=== PATIENT | female | born 1955 | race American Indian/Alaskan Native ===

== ENCOUNTER 2016-03-09 08:12 | Day surgery (SDC) | payer MEDICARE ==
[~2016-03-09 08:12] MED LIST: DIPRIVAN 10 MG/ML IV ONE; XYLOCAINE 2% INFILTRATI ONE
--- NOTE | 2016-03-09 08:31 | Anesthesia Consultation ---
Anesthesia Consult and Med Hx Date of service: 03/09/16 - Airway Anesthetic Teeth Evaluation: Good ROM Head & Neck: Adequate Mental/Hyoid Distance: Adequate Mallampati Class: Class II Intubation Access Assessment: Probably Good - Pulmonary Exam CTA: Yes - Cardiac Exam Cardiac Exam: RRR - Pre-Operative Health Status ASA Pre-Surgery Classification: ASA2 Proposed Anesthetic Plan: MAC - Pulmonary Hx Smoking: Yes (>40 years) Hx Asthma: No - Cardiovascular System Hx Hypertension: Yes - Gastrointestinal Hx Gastroesophageal Reflux Disease: No (patient states never has had GERD, unknown why on med) - Endocrine Hx Renal Disease: No Hx Liver Disease: No Hx Non-Insulin Dependent Diabetes: No - Hematic Hx Anemia: Yes Hx Sickle Cell Disease: Yes (TRAIT) - Other Systems Hx Alcohol Use: No Hx Substance Use: No Hx Cancer: Yes Hx Obesity: No - Additional Comments Anesthesia Medical History Comments: h/o colon cancer
--- NOTE | 2016-03-09 10:42 | Anesthesia Day of Surgery ---
Anesthesia Day of Surgery - Day of Surgery Patient Examined: Yes Patient H&P Reviewed: Yes Patient is NPO: Yes
--- NOTE | 2016-03-09 10:52 | Short Stay Summary ---
Short Stay Documentation Date of service: 03/09/16 Narrative H&P: 60 year old presents for EGD. Indication: diarrhea. Incidental problems include elevated CEA and weight loss. - History H&P: obtained from office Past Medical History: cancer (colon), GERD, hyperthyroidism, other (colon polyps ) Past Surgical History: cholecystectomy, bowel surgery (resection cecal cancer 2008) Social history: smoking, no alcohol abuse - Allergies and Medications Current Medications: Allergies No Known Allergies Allergy (Verified 11/25/12 13:23) Home Medications Medication Instructions Recorded Confirmed Last Taken Type Citalopram 40 mg PO DAILY 01/20/16 03/09/16 01/19/16 History Gabapentin 300 mg PO BID 01/20/16 03/09/16 03/08/16 History Klor-Con 20 mg PO BID 01/20/16 03/09/16 03/08/16 History Lisinopril 20 mg PO DAILY 01/20/16 03/09/16 01/19/16 History Omeprazole 40 mg PO HS 01/20/16 03/09/16 01/19/16 History Triamter/Hctz 75-50 mg 1 tab PO DAILY 01/20/16 03/09/16 01/19/16 History Vitamin D3 2,000 mg PO BID 01/20/16 03/09/16 03/08/16 History Vitamin E 200 mg PO DAILY 01/20/16 03/09/16 03/08/16 History Celecoxib 200 mg PO PRN PRN 03/09/16 03/09/16 03/08/16 History QUEtiapine Fumarate 100 mg PO HS 03/09/16 03/09/16 03/08/16 History Valsartan [Diovan] 160 mg PO DAILY 03/09/16 03/09/16 03/08/16 History Active Medications Sodium Chloride (Nacl 0.9% 1000 Ml) 1,000 mls @ 50 mls/hr IV DIRECT KALI Last Admin: 03/09/16 10:50 Dose: 50 mls/hr - Physical exam General appearance: no acute distress, well-nourished HEENT: PERRLA, EOMI Heart: Regular rate, Normal S1, Normal S2 Gastrointestinal: normal, obese - Hospital course Hospital course: Uneventful EGD. - Disposition Condition at discharge: Good Disposition: DISCHARGED TO HOME OR SELFCARE - Discharge Diagnoses (1) Diarrhea Status: Acute Comment: suspect post-surgical "choleraic" diarrhea (2) Gastritis Status: Acute (3) Elevated CEA Status: Acute (4) Weight loss Status: Acute (5) Tobacco use Status: Acute Short Stay Discharge Plan Activity: other (no driving today) Diet: other (may resume usual diet) Additional Instructions: Patient to call for biopsy results.
[2016-03-09] MEDS ORDERED: NACL 0.9% 1000 ML 1,000 ML IV SCH (11:00)
--- NOTE | 2016-03-09 11:51 | Operative Report ---
Operative Report Operative Report: Date of procedure: 03/09/2016 Preprocedure diagnosis: Diarrhea, elevated CEA, weight loss Post procedure diagnosis: Gastritis Procedure name(s): Esophagogastroduodenoscopy with biopsy Surgeon: Fracisco Lebron MD Anesthesia: Monitored anesthesia care EBL: None Procedure: The indications, techniques, potential complications and alternatives , had been discussed in full detail prior to the date of the exam, and once again on the day of the exam. Questions were encouraged and answered, and consent was thereby obtained. The patient was placed in the left lateral decubitus position, and was medicated by anesthesia services. See the anesthesia records for details. The tip of a [employer] video panendoscope was passed easily through the pharynx and into the esophagus which appeared normal throughout its entire length. The instrument was advanced into the stomach and air was insufflated. There were a few scattered foci of erythema and ring or erosion in the distal body and antrum. No ngoc ulceration. The gastric mucosa was otherwise normal throughout. The pylorus was patent, there was no retained gastric content, the gastric folds were normal in thickness and contour. No pathology was seen in the duodenal bulb or the post bulbar duodenum to below the level of the ampulla. Retroflexion in the stomach disclosed no pathology involving the lesser curvature, fundus or cardia. Random post bulbar duodenal biopsies were obtained to assess villous architecture. There was no significant bleeding. Antral biopsies were obtained for rapid Helicobacter pylori testing. There was no significant bleeding. The endoscope was then withdrawn with repeat examination of the stomach, esophagogastric junction and esophagus. There were no additional findings. The procedure was very well tolerated. Postprocedure she was monitored in the recovery area of the GI lab to ensure stability prior to her release. See the outpatient record for details regarding instructions to patient, medications and plans for follow-up. Final diagnosis: 1. Mild nonerosive gastritis 2. Otherwise normal upper endoscopy Fracisco Lebron M.D. Dictated 03/09/2016 at 11:50 AM
--- NOTE | 2016-03-09 12:12 | Post Anesthesia Evaluation ---
- Post Anesthesia Evaluation Patient Participated: Yes Airway Patent: Yes Stable Respiratory Function: Yes Nausea/Vomiting: No Temp > 96.8F: Yes Pain Manageable: Yes Adequeate Hydration: Yes Anesthesia Complications: No Block Receding Appropriately: Not Applicable Patient on Ventilator: No
[2016-03-09 12:29] VITALS: BP 135/64
== END 2016-03-09 08:13 | disposition home or self-care (01) ==
LOC: GIO 08:12
PROVIDERS: ATTEND Internal Medicine Gastroenterology
DX: K29.70 Gastritis, unspecified, without bleeding (principal); I10 Essential (primary) hypertension; K21.9 Gastro-esophageal reflux disease without esophagitis; K29.80 Duodenitis without bleeding; Z87.891 Personal history of nicotine dependence; Z85.038 Personal history of other malignant neoplasm of large intestine
CPT/HCPCS: 43239; 86677; 88305; J2704; J7030